=== PATIENT | female | born 1980 | race Caucasian/White ===

== ENCOUNTER → 2017-04-20 | Outpatient (CLI) | payer OTHER ==
[2017-04-20 17:06] LABS: URINE BILIRUBIN NEG (NEG); URINE COLOR YELLOW; URINE EPITHELIAL CELL AUTO >30 /lpf (0-5); URINE NITRITE NEG (NEG); URINE PH 8.5 (4.5-7.5); URINE SPECIFIC GRAVITY 1.011 (1.000-1.030); UROBILINOGEN NEG (NEG)
[2017-04-20 17:10] LABS: MANUAL MICROSCOPIC REQUIRED? NO; REVIEW REQ? NO; URINE APPEARANCE CLEAR (CLEAR)
== END | disposition home or self-care (01) ==
LOC: C.LABSPEC 16:21
PROVIDERS: ATTEND Obstetrics & Gynecology
DX: R39.9 Unspecified symptoms and signs involving the genitourinary system (principal)

== ENCOUNTER → 2017-06-28 | Outpatient (CLI) | payer OTHER ==
[~2017-06-28] MED LIST: DULO60CA44 PO; LORA-741 PO; RIZA10TA18 PO; VALA500T60 PO
[2017-06-28 17:59] LABS: BASO % 0.6 %; BASO ABS # 0.04 K/uL (0-0.2); COMPLETE YES; EOS % 1.7 %; HEMATOCRIT 36.6 % (37-47); IG% 0.1 %; LYMPH ABS # 2.56 K/uL (1.2-3.4); MEAN CORPUSCULAR HEMOGLOBIN 29.8 pg (25-34); MEAN CORPUSCULAR HGB CONC 33.9 g/dl (32-36); MEAN PLATELET VOLUME 10.7 fL (7.4-10.4); MONO % 6.8 %; NEUT % 53.8 %; PLATELET COUNT 277 K/uL (130-400); RED BLOOD COUNT 4.16 M/uL (4.2-5.4); WHITE BLOOD COUNT 6.91 K/uL (4.8-10.8)
[2017-06-28 18:38] LABS: ALT/SGPT 22 U/L (12-78); AST/SGOT 9 U/L (15-37); BLOOD UREA NITROGEN 16 mg/dl (7-18); BUN/CREATININE RATIO 22.2 (10-20); CALCIUM 8.6 mg/dl (8.5-10.1); CARBON DIOXIDE 24 mmol/L (21-32); CHLORIDE 105 mmol/L (98-107); GLUCOSE 84 mg/dl (70-99); POTASSIUM 3.8 mmol/L (3.5-5.1); SODIUM 137 mmol/L (136-145)
[2017-06-28 18:41] LABS: ALKALINE PHOSPHATASE 48 U/L (45-117)
[2017-06-28 18:48] LABS: PREG INTERNAL NEGATIVE QC NEG CLEAR BACKGROUND; PREG INTERNAL POSITIVE QC POS CONTROL LINE
[2017-06-28 19:00] LABS: URINE APPEARANCE CLEAR (CLEAR); URINE BILIRUBIN NEG (NEG); URINE COLOR YELLOW; URINE NITRITE NEG (NEG); URINE SPECIFIC GRAVITY 1.033 (1.000-1.030); UROBILINOGEN NEG (NEG)
[2017-06-28 19:02] LABS: MANUAL MICROSCOPIC REQUIRED? NO; REVIEW REQ? NO
== END | disposition home or self-care (01) ==
LOC: C.LAB 17:07
PROVIDERS: ATTEND Obstetrics & Gynecology
DX: Z01.812 Encounter for preprocedural laboratory examination (principal)

== ENCOUNTER 2017-07-09 06:42 | Day surgery (SDC) | payer OTHER ==
[2017-06-27 07:36] VITALS: BMI 22.0
[2017-06-27 07:41] VITALS: Ht 165.1 cm; Wt 61.4 kg
[~2017-07-09] VITALS: Ht 165.1 cm; Wt 61.4 kg
[~2017-07-09 06:42] MED LIST changes: +LACTATED RINGER'S 1000ML 1,000 ML IV SCH
[2017-07-09 07:56] VITALS: BP 112/66; PULSE 77; TEMP 36.8; O2SAT 99
[2017-07-09] MEDS ORDERED: OXYC-57 PO (07:56)
--- NOTE | 2017-07-09 08:06 | History & Physical Bridge Note ---
H&P Re-Evaluation Bridge Note: I have examined the patient, reviewed the History & Physical and in the interval since the performance of the History & Physical I have noted the following changes of clinical significance: No changes noted
[2017-07-09] MEDS ORDERED: PROMETHAZINE HCL INJ 12.5 MG in SODIUM CHLORIDE 0.9% 50ML 50 ML IV PRN (08:15)
[2017-07-09] MEDS ORDERED: ATROPINE SULFATE 0.1 MG/ML 5ML SYR IV PRN (08:15)
[2017-07-09] MEDS ORDERED: EpHEDrine SULFATE INJ 50 MG/ML AMP IV PRN (08:15)
[2017-07-09] MEDS ORDERED: ONDANSETRON INJ 2 MG/ML 2 ML VIAL IV PRN ×2 (08:15→12:00)
[2017-07-09] MEDS ORDERED: HYDROmorphone INJ 1 MG/ML SYR IV PRN (08:15)
[2017-07-09] MEDS ORDERED: FENTANYL CITRATE INJ 50 MCG/1 ML 2 ML VIAL ONE ×2 (08:30→10:04)
[2017-07-09] MEDS ORDERED: MIDAZOLAM HCL 1 MG/ML 2ML VIAL ONE (08:30)
[2017-07-09] MEDS ORDERED: BUPIVACAINE 0.5 % 5 MG/1 ML MPF 30ML VIAL ONE (08:55)
[2017-07-09] MEDS ORDERED: PHENYLEPHRINE 100MCG/ML 5ML SYR ONE (10:03)
[2017-07-09] MEDS ORDERED: EpHEDrine SULFATE 50MG/5ML SYR ONE (10:03)
[2017-07-09] MEDS ORDERED: DEXAMETHASONE SOD INJ 4 MG/ML VIAL ONE (10:07)
[2017-07-09] MEDS ORDERED: ONDANSETRON INJ 2 MG/ML 2 ML VIAL ONE ×2 (10:07→11:43)
[2017-07-09] MEDS ORDERED: LIDOCAINE HCL 2% 2 ML VIAL (20MG/ML) ONE (10:07)
[2017-07-09] MEDS ORDERED: PROPOFOL IV EMULSION 10 MG/ML 20 ML VIAL IV ONE (10:07)
[2017-07-09] MEDS ORDERED: NEOSTIGMINE METHYLSULFATE 5 MG/5 ML SYR ONE (11:18)
[2017-07-09] MEDS ORDERED: GLYCOPYRROLATE INJ 0.2 MG/ML VIAL ONE (11:18)
[2017-07-09] MEDS ORDERED: KETOROLAC TROMETHAMINE 30 MG/ML VIAL ONE (11:18)
[2017-07-09] MEDS ORDERED: SODIUM CHLORIDE 0.9% 1000ML 1,000 ML IV SCH (11:58)
[2017-07-09] MEDS: FENTANYL CITRATE INJ 50 MCG/1 ML 2 ML VIAL IV PRN ×2 (11:58→12:03)
[2017-07-09] MEDS ORDERED: OXYCODONE/ACETAMINOPHEN 5-325 TAB PO PRN ×2 (12:00)
--- NOTE | 2017-07-09 12:01 | [facility] Post Operative Brief Note ---
Immediate Operative Summary Operative Date Jul 09, 2017. Pre-Operative Diagnosis Menorrhagia, Malpositioned Intrauterine Device Post-Operative Diagnosis Same Procedure(s) Performed Dilation and Currettage, Hysteroscopy with Endometrial Ablation; Laparoscopic Tubal Sterilization; Removal of Intrauterine Device Surgeon Dr. Segal Ssis Architect Surgeon(s) Dr. Cortés Estimated Blood Loss 10mL Findings IUD malpositioned with base embedded in anterior cervical lip. Removed in 2 pieces. Uterus retroverted, 9cm. Large amount of fluffy endometrium. Uterine measurements: 5.0 length, 4.3 width. Power 118w. Burn time 1min 23 sec. On laparoscopy, uterus/tubes/ovaries appear wnl. Appendix wnl. Liver edge and visible bowel wnl. Specimens Fresh A. Explanted IUD Formalin B. Endometrial Curettings Drains bustillos, clear yellow Anesthesia general Complication(s) None Disposition Recovery Room / PACU
--- NOTE | 2017-07-09 12:05 | Discharge Instructions ---
Discharge Instructions Date of Service Jul 09, 2017. Visit Reason for Visit: Menorrhagia, Malpositioned Iud, Req Sterilization Discharge Discharge Diagnosis / Problem: same Discharge Goals Goal(s): Diagnostic testing, Therapeutic intervention Activity Recommendations Activity Limitations: per Instructions/Follow-up section Anesthesia . Post Anesthesia Instructions: If you have had General Anesthesia or IV Sedation: * Do not drive today. * Resume driving when surgeon permits. * Do not make important decisions or sign legal documents today. * Call surgeon for: 1. Temperature elevations greater than 101 degrees F. 2. Uncontrollable pain. 3. Excessive bleeding. 4. Persistent nausea and vomiting. 5. Medication intolerance (nausea, vomiting or rash). * For nausea and vomiting use only clear liquids such as: tea, soda, bouillon until nausea subsides, then gradually increase diet as tolerated. * If you have any concerns or questions, call your surgeon's office. If physician is unavailable and it is an emergency, call 911 or go to the nearest emergency room. . Instructions / Follow-Up Instructions / Follow-Up ACTIVITY RECOMMENDATIONS: * Rest the first 2-3 days. You should be back to your normal activity levels by day 3. * No heavy lifting for 2 weeks. * No intercourse, tampons or douching for 1-2 weeks. * You may shower the next day. * Do not drive anytime that you are taking narcotic pain medicines. RETURN TO SCHOOL/WORK: * May return to school or work after 2-3 days. DIET: Nausea may occur in the immediate post-operative period. If so, take clear liquids such as tea, bouillon, apple juice until all nausea has subsided, then resume usual diet. MEDICATIONS: Resume previous medications unless instructed otherwise by your surgeon. Ibuprofen 200mg 2-3 tablets every 4-6 hours as needed -- OR -- Aleve 2 tablets every 8-12 hours as needed for post-operative discomfort Medications are over the counter. Tylenol may be used if above medications are contraindicated or not preferred. Medication should be taken with food or milk. Do not take on an empty stomach. SPECIAL CARE INSTRUCTIONS: * Check temperature twice daily for one week. report any elevation over 101 degrees. * You may experience some vagina spotting and/or bleeding. This is normal for 1 -2 weeks and should not be heavier than a normal period. If it is unusual in amount, call your physician. * Post-operative discomfort may consist of a sore throat, a "bloated" feeling and pain in the shoulders. these are normal symptoms, which usually only last for 2-3 days. * Remove bandages tomorrow and shower. There is no need to replace bandages unless there is drainage or discomfort. FOLLOW UP VISIT: Call your doctor's office for a post-operative 2 week visit if not already scheduled. Diet Recommendations Recommended Home Diet: resume previous diet Procedures Procedures Performed: Dilation and Currettage, Hysteroscopy with Endometrial Ablation; Laparoscopic Tubal Sterilization; Removal of Intrauterine Device Pending Studies Studies pending at discharge: yes List of pending studies: endometrial curettings, IUD Medical Emergencies . Who to Call and When: Medical Emergencies: If at any time you feel your situation is an emergency, please call 911 immediately. . 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 . "Provider Documentation" section prepared by Evelia Segal. . [place] Drug Monitoring Program Search Results: patient reviewed within database Drug Monitoring Findings: Rx found for Tylenol#3 and lorazepam. Although patient has these prescriptions , I feel that #20 tabs percocet is appropriate for short-term postoperative pain control.
--- NOTE | 2017-07-09 12:15 | Anesthesiology Progress Note ---
Anesthesia Post Op Note Date & Time Jul 09, 2017 at 12:14 Vital Signs Pain Intensity: 6 Vital Signs Past 12 Hours Date Time Temp Pulse Resp B/P (MAP) Pulse Ox O2 Delivery O2 Flow Rate FiO2 07/09/17 12:05 95 20 120/73 99 Oxymask 4 07/09/17 11:55 99 18 118/72 100 Oxymask 10 07/09/17 11:45 94 15 113/66 100 Oxymask 10 07/09/17 11:38 36.9 97 14 109/69 100 Oxymask 10 07/09/17 07:56 36.8 77 18 112/66 (81) 99 Room Air Notes Mental Status: alert / awake / arousable, participated in evaluation Pt Amnestic to Procedure: Yes Nausea / Vomiting: adequately controlled Pain: adequately controlled Airway Patency, RR, SpO2: stable & adequate BP & HR: stable & adequate Hydration State: stable & adequate Anesthetic Complications: no major complications apparent Doing well, no complaints. VSS.
[2017-07-09 12:25] VITALS: BP 112/63; PULSE 103; TEMP 36.5; O2SAT 95
[2017-07-09 12:55] VITALS: BP 116/67; PULSE 107; O2SAT 96
[2017-07-09 13:30] VITALS: BP 113/67; PULSE 106; TEMP 36.4; O2SAT 96
[2017-07-09 13:55] VITALS: BP 104/66; PULSE 105; O2SAT 96
--- NOTE | 2017-07-09 14:56 | OPERATIVE REPORT ---
DATE OF OPERATION: 07/09/2017 PREOPERATIVE DIAGNOSES: 1. Menorrhagia. 2. Malpositioned intrauterine device. POSTOPERATIVE DIAGNOSES: Same. PROCEDURES PERFORMED: Dilation and curettage, hysteroscopy with endometrial ablation, laparoscopic tubal sterilization, and hysteroscopic removal of intrauterine device. SURGEON: Evelia Segal DO SLEEVE WHEEL MAKER: Dr. Cortés. ESTIMATED BLOOD LOSS: 10 mL. FINDINGS: IUD malpositioned with base embedded in anterior cervical lip, removed in 2 pieces. Uterus was retroverted, sounded to 9 cm. Large amount of fluffy endometrium on hysteroscopy. Uterine measurements 5.0 length, 4.3 width, power 118 santana, burn time 1 minute 23 seconds. On laparoscopy uterus, tubes, and ovaries appeared normal. Appendix was normal. Liver edge and visible bowel was normal. SPECIMENS: Explanted IUD and endometrial curettings. DRAINS: Calhoun, clear yellow. ANESTHESIA: General. COMPLICATIONS: None. DISPOSITION: Stable and good to recovery room. INDICATIONS FOR PROCEDURE: The patient is a 32-year-old with known malpositioned and intrauterine device copper IUD that had multiple attempts at removal in the office by Dr. Stone, however, ultrasound revealed it was embedded in the cervix. There was concern that one of the arms of the IUD could be close to the uterine vessels; therefore, it was recommended that she have this procedure performed in the main operating room in the event of complications. She also reports heavy cycles with recent endometrial thickness on ultrasound measuring 20 mm. She desired permanent treatment with endometrial ablation. She has completed childbearing and would like to have permanent sterilization at the same time as ablation. I counseled patient extensively on performance of uterine sampling at the same time as endometrial ablation and that this is usually not recommended due to desire for pathology report prior to ablative treatment; however, she desired 1 anesthesia and 1 procedure and understands the risk of potentially ablating a malignant endometrial lining. DESCRIPTION OF PROCEDURE: The patient was seen in the preoperative holding area where risks, benefits, alternatives to surgery were reviewed. She elected to proceed with surgery. She had previously signed informed consent in the office under no duress, where we had specifically discussed the risk of need for hysterectomy in the event that one of the uterine vessels was disrupted during removal of malpositioned IUD. She was taken to the operating room where general anesthesia was undertaken. She was prepared and draped in the usual sterile fashion [facility] dorsal lithotomy position. A timeout was confirmed. The Calhoun catheter was inserted and clear yellow urine was noted in the catheter. The weighted speculum was placed in the vagina. The cervix was visualized and its anterior lip was grasped with a single tooth tenaculum. The IUD strings were visible at the cervical os. The cervix was gently dilated to admit the hysteroscope. The hysteroscope was inserted and the malpositioned IUD was visualized. Two attempts were made to remove the IUD by grasping the strings and gently pulling, however, it was not moving. Next, the arm of the IUD was grasped with a hysteroscopic forceps and gently pulled, this caused it to shear off from the body of the IUD. This was retained to be sent to pathology. Next, the remainder of the IUD was grasped with the hysteroscopic grasper and removed. The inferior tip of the IUD was still embedded in the cervical and the anterior cervical wall. With gentle traction and use of Metzenbaum scissors, this was then removed. Both digital examination and hysteroscopic visualization revealed no retained IUD pieces in the cervix. The uterus was then sounded. The cervix was then dilated to admit the hysteroscope into the intrauterine cavity, this was visualized. The scope was removed. A gentle curettage was undertaken with a sharp curette. The NovaSure device was then inserted through the cervix into the uterine cavity and seated. The device was deployed and burn was completed with the above noted parameters. The NovaSure device was removed. A sponge stick was placed in the vagina for uterine manipulation. Gloves and gown were changed and attention was then turned to the abdomen. An infraumbilical incision was made with a scalpel and using the open Wolfgang technique, the umbilical trocar was placed. A camera was inserted to ensure intraabdominal placement. The abdomen was then insufflated with CO2 gas to 15 mmHg. The patient was placed in Trendelenburg position. Bowel was pushed out of the way with a blunt tip probe. The bilateral fallopian tubes were visualized. The suprapubic port incision was made in this trocar was placed under direct visualization. Next, the bowel was swept out of the way with a blunt probe. Filshie clips were applied bilaterally on fallopian tubes confirming correct anatomical placement by visualization of the tubal fimbria. Excellent hemostasis was observed. The suprapubic trocar was removed under direct visualization. Infraumbilical trocar was removed. Gas was desufflated from the abdomen. The fascial incision was reapproximated using 0 Vicryl. The subcutaneous tissue was reapproximated using 0 Vicryl and both incisions were reapproximated using 4-0 Vicryl in a subcuticular stitch. Steri-Strips and bandages were applied. The patient tolerated the procedure well and was taken to recovery area in stable and good condition. I attest to the content of the Intraoperative Record and any orders documented therein. Any exceptions are noted below. [email or web address]
== END 2017-07-09 15:10 | disposition home or self-care (01) ==
LOC: C.ACU 06:42
PROVIDERS: ATTEND Obstetrics & Gynecology
DX: N92.0 Excessive and frequent menstruation with regular cycle (principal); T83.32XA Displacement of intrauterine contraceptive device, initial encounter; Z88.2 Allergy status to sulfonamides; Z91.040 Latex allergy status